=== PATIENT | female | born 1990 | race Caucasian/White ===

== ENCOUNTER 2019-05-25 14:22 | Emergency (ER) | payer OTHER ==
[~2019-05-25] VITALS: Ht 152.4 cm; Wt 89.8 kg
[~2019-05-25 14:22] MED LIST: ACET325T33 PO; HC30CR25 TOP; IBUP-1542 PO
[2019-05-25 14:33] VITALS: BP 158/68; PULSE 80; RESP 18; Ht 152.4 cm; Wt 89.8 kg
[2019-05-25] MEDS ORDERED: ACETAMINOPHEN 325 MG TAB PO ONE (15:00)
--- NOTE | 2019-05-25 16:38 | ERD ---
ER Documentation Chief Complaint Chief Complaint rolled right ankle yesterday, stepping off bus HPI 28-year-old female rolled her right ankle while stepping off the bus yesterday. She has pain in the right lateral malleolar area. She denies redness, restricted range of motion, deficits, additional injury. ROS All systems reviewed and are negative except as per history of present illness. Medications Home Meds Active Scripts Ibuprofen* (Motrin*) 600 Mg Tab, 600 MG PO Q6, #20 TAB Prov:LEW BAKER MD 05/25/19 Allergies Allergies: Coded Allergies: No Known Allergy (Unverified , 05/25/19) PMhx/Soc Medical and Surgical Hx: pt denies Medical Hx, pt denies Surgical Hx History of Surgery: No Hx Neurological Disorder: No Hx Respiratory Disorders: No Hx Cardiac Disorders: No Hx Psychiatric Problems: No Hx Miscellaneous Medical Probl: No Hx Alcohol Use: No Hx Substance Use: No Hx Tobacco Use: No Smoking Status: Never smoker FmHx Family History: No diabetes, No coronary disease, No other Physical Exam Vitals Vital Signs Date Temp Pulse Resp B/P (MAP) Pulse Ox O2 O2 Flow FiO2 Time Delivery Rate 05/25/19 98.2 80 18 158/68 97 14:33 (98) Physical Exam Const: No acute distress Head: Atraumatic Eyes: Normal Conjunctiva ENT: Normal External Ears, Nose and Mouth. Neck: Full range of motion. No meningismus. Resp: Clear to auscultation bilaterally Cardio: Regular rate and rhythm, no murmurs Abd: Soft, non tender, non distended. Normal bowel sounds Skin: No petechiae or rashes Back: No midline or flank tenderness Ext: No cyanosis, or edema or tenderness swelling right distal fibula. No metatarsal tenderness. No deficits, edema, warmth. No additional tenderness. Neur: Awake and alert Psych: Normal Mood and Affect Results 24 hrs Current Medications Medications Dose Sig/Julisa Start Time Status Last (Trade) Ordered Route PRN Stop Time Admin Dose Reason Admin 650 mg ONCE ONCE 05/25/19 DC 05/25/19 Acetaminophen PO 15:00 05/25/19 15:06 (Tylenol 15:01 Tab) Procedures/MDM X-ray Ankle 3V Interpreted by me: Bones: No fracture Joints: No dislocation Foreign Body: None. Impression-soft tissue swelling without fracture dislocation. Symptoms right ankle sprain without signs of fracture, ischemia, infection or deficits. She is placed in a right ankle Mayo bandage is Novastan intact after Mayo bandage. She will discharged home with instructions for ice, elevation, recommendations for primary care follow-up and return precautions and orthopedic evaluation for pain next week. The patient was stable with no new complaints during the ER course. Clinically, there is no current evidence to suggest meningitis, sepsis, acute abdomen, pneumonia, stroke, acute coronary syndrome, pulmonary embolism, aortic dissection or any other emergent condition appearing to require further evaluation or hospitalization. Patient counseled regarding my diagnostic impression and care plan. Prior to discharge all questions answered. Pt agrees with treatment plan and understands strict return precautions. Pt is instructed to follow up with primary care provider within 24- 48 hours. Precautionary instructions provided including instructions to return to the ER if not improving or for any worsening or changing symptoms or concerns. Disclaimer: Inadvertent spelling and grammatical errors are likely due to EHR/dictation software use and do not reflect on the overall quality of patient care. Also, please note that the electronic time recorded on this note does not necessarily reflect the actual time of the patient encounter. Departure Diagnosis: Primary Impression: Ankle injury Encounter type: initial encounter Laterality: right Qualified Codes: S99.911A - Unspecified injury of right ankle, initial encounter Condition: Stable Patient Instructions: Treating Ankle Sprains Additional Instructions: X-ray read as normal. Likely sprain. Recommend ice and elevation at home. Recheck for redness, fevers, new worsening symptoms with primary care doctor. LEW BAKER MD May 25, 2019 16:38
== END 2019-05-25 16:59 | disposition home or self-care (01) ==
LOC: FTE 14:22
DX: S99.911A Unspecified injury of right ankle, initial encounter (principal); X58.XXXA Exposure to other specified factors, initial encounter; Y92.811 Bus as the place of occurrence of the external cause
CPT/HCPCS: 73610; Z7502; Z7610

== ENCOUNTER 2019-06-02 17:13 | Emergency (ER) | payer OTHER ==
[~2019-06-02] VITALS: Ht 157.5 cm; Wt 90.7 kg
[2019-06-02 17:31] VITALS: Ht 157.5 cm; Wt 90.7 kg
--- NOTE | 2019-06-02 19:12 | ERD ---
ER Documentation Chief Complaint Chief Complaint rectal bleeding with bowel movments today HPI 28-year-old female, presents the emergency department, complaining of rectal pain and rectal bleeding after having constipation for 3 days. The patient had a large bowel movement today that caused pain and bleeding. She denies abdominal pain, no fever or chills. ROS All systems reviewed and are negative except as per history of present illness. Medications Home Meds Active Scripts Acetaminophen* (Tylenol*) 325 Mg Tablet, 2 TAB PO Q6 PRN for PAIN AND OR ELEVATED TEMP, #20 TAB Prov:OLIVIER REYES MD 06/02/19 Hydrocortisone* Topical (Hydrocortisone* Topical) 2.5%-28.3 Gm Cream..g., 1 APPLIC TOP BID for 3 Days, #1 TUB Prov:OLIVIER REYES MD 06/02/19 Ibuprofen* (Motrin*) 600 Mg Tab, 600 MG PO Q6, #20 TAB Prov:LEW BAKER MD 05/25/19 Allergies Allergies: Coded Allergies: No Known Allergy (Unverified , 05/25/19) PMhx/Soc History of Surgery: No Hx Neurological Disorder: No Hx Respiratory Disorders: No Hx Cardiac Disorders: No Hx Psychiatric Problems: No Hx Miscellaneous Medical Probl: No Hx Alcohol Use: No Hx Substance Use: No Hx Tobacco Use: No FmHx Family History: No diabetes, No coronary disease Physical Exam Vitals Vital Signs Date Temp Pulse Resp B/P (MAP) Pulse Ox O2 O2 Flow FiO2 Time Delivery Rate 06/02/19 98.3 73 20 118/80 100 Room Air 19:30 (93) 06/02/19 98.1 88 18 139/72 99 17:31 (94) Physical Exam Const: No acute distress Head: Atraumatic Eyes: Normal Conjunctiva ENT: Normal External Ears, Nose and Mouth. Neck: Full range of motion. No meningismus. Resp: Clear to auscultation bilaterally Cardio: Regular rate and rhythm, no murmurs Abd: Soft, non tender, non distended. Normal bowel sounds Rectal: Skin fissure noticed, normal sphincter tone, no external hemorrhoids. Skin: No petechiae or rashes Back: No midline or flank tenderness Ext: No cyanosis, or edema Neur: Awake and alert Psych: Normal Mood and Affect Procedures/MDM Differential diagnosis include but not limited to: Internal hemorrhoid, external hemorrhoid, skin tag, bowel Obstruction, ileus, fecal impaction. Low suspicion for acute abdomen. Physical examination and clinical presentation consistent most likely with anal fissure During the ED course the patient remained stable, no new complaints. Treatment options, results and clinical impression discussed with the patient who agrees with management. The patient is stable to be treated outpatient and will be discharged home, some side effects of prescribed medications were reviewed. The patient was instructed to follow up with the primary care provider in the next 48h. If symptoms persist, worsen or new symptoms develop, then patient should return to the ED immediately. Instructions explained and given directly by me to the patient with acknowledgment and demonstrated understanding. Disclaimer: Inadvertent spelling and grammatical errors are likely due to EHR/dictation software use and do not reflect on the overall quality of patient care. Also, please note that the electronic time recorded on this note does not necessarily reflect the actual time of the patient encounter. Departure Diagnosis: Primary Impression: Anal fissure Condition: Stable Additional Instructions: Thank you very much for allowing us to participate in your care. Your health and safety is our top priority at [facility]. The evaluation in the emergency department has been done to rule out an acute emergency. Chronic, [id number] conditions may have not been evalu ated; therefore, you need to follow up with a primary care provider in the next 48h. If symptoms persist, worsen or new symptoms develop, then patient should return to the ED immediately. Call your primary care doctor TOMORROW for an appointment during the next 2-4 days and bring all the information provided. Have prescriptions filled and follow precisely the directions on the label. If the symptoms get worse and your provider is unavailable, return to the Emergency Department immediately. OLIVIER REYES MD Jun 02, 2019 19:12
[2019-06-02 19:30] VITALS: BP 118/80; PULSE 73; RESP 20
== END 2019-06-02 19:42 | disposition home or self-care (01) ==
LOC: FTE 17:13
DX: K60.2 Anal fissure, unspecified (principal)
CPT/HCPCS: 99282